=== PATIENT | female | born 1985 | race Caucasian/White ===

== ENCOUNTER 2016-08-12 05:37 | Inpatient (IN) | payer MEDICARE, MEDICAID ==
[~2016-08-12] VITALS: Ht 152.4 cm; Wt 95.1 kg
--- NOTE | ~2016-08-12 | DS ---
ADMIT: 08/12/2016 RM/LOC: 524 [facility] MR#: [id number] [facility]#: [id number] [address] [address] STARLA HINES [address] [address] General Discharge Summary SEX: F AGE: 30 : 1985 ADMISSION DATE: 08/12/2016 DISCHARGE DATE: 08/13/2016 SERVICE: Neurosurgery. REASON FOR ADMISSION: Malfunction of the ventriculoperitoneal shunt. PROCEDURE: Ventriculoperitoneal shunt revision. HOSPITAL COURSE: Ms. Hines tolerated her procedure well. Postoperatively, she was taken to the Med/Surg floor for monitoring and care. Postop day #1, she was awake and alert. She was afebrile, and her vital signs were stable. She was moving all extremities x4 with 5/5 strength. Her incisions were clean, dry, and intact. She was up and ambulating and was requesting discharge home. DISCHARGE CONDITION: Good. MEDICATIONS: 1. Keppra 3000 mg b.i.d. 2. Lamotrigine 250 mg b.i.d. 3. Folic acid 1 mg daily. 4. Oxcarbazepine 600 mg b.i.d. 5. Vitamin D3, 2000 units daily. 6. Vitamin B12, 1000 mcg daily. 7. Otic allergy relief p.r.n. DISCHARGE INSTRUCTIONS: Per Dr. Wallace, she can have a regular diet. She can shower, she should use baby shampoo only on her head incisions. She should not use any curling iron, [employer], or any hair products. She will call with any questions or concerns including neurological worsening, signs or symptoms of infection, or any other issues. FOLLOWUP: She will follow up with Dr. Wallace in [place] in August. DISPOSITION: She was discharged home. Total [id number] time for the discharge planning and care coordination was 30 minutes. Unique Bautista APRN / Aldo Wallace MD / damien JOB #: [id number] CC: Aldo Wallace MD, Attending Physician Belkis Santos MD, Family Physician
--- NOTE | 2016-08-14 07:19 | OR ---
ADMIT: 08/12/2016 RM/LOC: 524 [facility] MR#: [id number] [facility]#: [id number] [address] [address] STARLA CARIAS [address] [address] Operative/Delivery Room Report SEX: F AGE: 30 : 1985 Correction: 08/13/2016 0844 djs SURGERY DATE: 08/12/2016 SURGEON: Aldo Wallace MD CO-SURGEON: Mook Lopez MD. Please see Dr. Lopez's dictation for his portion of the procedure. TRAINING OFFICER: None. 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 POSTOPERATIVE DIAGNOSIS: Shunt failure from a broken shunt. PROCEDURES: 1. Removal of complete ventriculoperitoneal shunt system with replacement. 2. Intraoperative programming of Codman Certas valve to a pressure setting of 2. DESCRIPTION OF PROCEDURE: After gaining informed consent, the patient was taken to the operative theater, placed under general endotracheal anesthesia. A time-out was utilized to ascertain the correct site and side of surgery as well as other pertinent patient historical information. Counts were obtained at the beginning and the end of the case with no change betwixt the two. Antibiotics given within 1 hour of incision. The right parietal wound was opened. This was then taken down to the shunt catheter, which was disconnected from the valve. The valve was pulled up with no remaining catheter attached to it. The CSF was under pressure coming out of the ventricular catheter. A new catheter was then soft passed to a similar length and snapped into place. At this point, incisions were opened in the abdomen, and I was unable to access any remaining catheter within the subcutaneous tissue of the abdomen. This is when Dr. Lopez was consulted to come in for laparoscopic assistance. Please see his note. Of note, her final shunt ended up implanted into the right upper quadrant stab incision, not the larger incision that had previously been used, and both incisions had colon stuck down in those areas, which would make a somewhat higher risk to blindly place a shunt in her abdomen at either of those 2 sites. I obtained the valve that I had programmed initially with the [employer] cnc lathe programmer to a setting of 2 and connected to the peritoneal catheter. I then tunneled this down to the stab incision in the right upper quadrant and connected this to the ventricular catheter. Spontaneous CSF flow was noted. Once this was prepared, this was then passed through the split trocar into the abdomen. There was no ADMIT: 08/12/2016 RM/LOC: 524 [facility] MR#: [id number] [address] [address] STARLA CARIAS [address] [place] [address] Operative/Delivery Room Report SEX: F AGE: 30 : 1985 sign of complication. Attention was then turned to wound closure. The wounds were closed with simple inverted interrupted 2-0 Vicryl in the hypodermic tissue. The abdominal wounds were closed with Monocryl or Stratafix in a subcuticular fashion, and the scalp wound was closed with abebe. COMPLICATIONS: None. ESTIMATED BLOOD LOSS: Charted. SPECIMEN: Broken shunt remnants. Aldo Wallace MD/ damien JOB #: [id number] CC: Aldo Wallace, Attending Physician [facility] Correction: 08/13/2016 0844 [email or web address]
--- NOTE | 2016-08-14 09:14 | OR ---
ADMIT: 08/12/2016 RM/LOC: 524 [facility] MR#: [id number] [facility]#: [id number] [address] [address] STARLA CARIAS [address] [address] Operative/Delivery Room Report SEX: F AGE: 30 : 1985 SURGERY DATE: 08/12/2016 SURGEON: Mook Lopez MD PREOPERATIVE DIAGNOSIS: Ventriculoperitoneal shunt malfunction. POSTOPERATIVE DIAGNOSIS: Fractured ventriculoperitoneal shunt. PROCEDURE: Diagnostic laparoscopy with removal of intraabdominal portion of fractured ventriculoperitoneal shunt catheter. ANESTHESIA: General. ESTIMATED BLOOD LOSS: 10 mL. DESCRIPTION OF PROCEDURE: The patient remained under general anesthesia. Prepped and draped for the ventriculoperitoneal shunt revision with Dr. Wallace. I was consulted intraoperatively for diagnostic laparoscopy given the fractured catheter that he found during exploration of the extraperitoneal portion. A 5 mm infraumbilical incision was made in the skin. The fascia was grasped with Bijan clamp, and a Veress needle was advanced into the peritoneal cavity. Carbon dioxide was used to insufflate the abdomen to 15 mmHg pressure. The Veress needle was withdrawn, and a 5 mm trocar was placed. Laparoscope was advanced and showed intraperitoneal position with no damage to underlying structures. Inspection of the peritoneal cavity revealed significant intraabdominal adhesions with transverse colon and omentum stuck to the anterior abdominal wall. Inspection of the catheter also revealed fracture of one end with catheter with both loose ends in the abdomen. An additional 5 mm right lateral port was placed under visualization. The catheter was grasped with a DeBakey clamp and removed in its entirety. Next, the abdomen was then accessed in the upper midline just below the transverse colon adhesions with the BLURB WRITER shunt trocar. The new catheter was advanced into an intraperitoneal position without difficulty. The ports were removed after deflation of the abdomen. Skin edges were approximated by Dr. Wallace. Mook Lopez MD/ damien JOB #: [id number] CC: Aldo Wallace, Attending Physician Belkis Santos, Family Physician
[2016-08-14] MEDS ORDERED: KEPPRA1000 MG PO (14:24)
[2016-08-14] MEDS ORDERED: FOLVITE-DPS1 MG PO (14:24)
[2016-08-14] MEDS ORDERED: TRILEPTAL300 MG PO (14:25)
[2016-08-14] MEDS ORDERED: LAMICTAL DPS100 MG PO (14:25)
[2016-08-14] MEDS ORDERED: ALLERGY RELIEF4 MG PO (14:26)
[2016-08-14] MEDS ORDERED: VITAMIN D-32000 UNI1 PO (14:26)
[2016-08-14] MEDS ORDERED: VITAMIN B-121000 MCG PO (14:26)
[2016-08-14] MEDS ORDERED: HYDROCODON-ACE1 EAC4 PO (14:27)
== END 2016-08-13 12:15 | disposition home or self-care (01) | DRG 32 ==
LOC: 5MS 05:37 → WOR 05:37 → 5MS 08:58
PROVIDERS: ADMIT Neurological Surgery
DX: T85.01XA Breakdown (mechanical) of ventricular intracranial (communicating) shunt, initial encounter (principal); L03.90 Cellulitis, unspecified; R56.9 Unspecified convulsions; Z68.41 Body mass index [BMI] 40.0-44.9, adult; Q03.9 Congenital hydrocephalus, unspecified; K66.0 Peritoneal adhesions (postprocedural) (postinfection); E66.01 Morbid (severe) obesity due to excess calories